=== PATIENT | female | born 1940 | race Asian ===

== ENCOUNTER 2023-06-27 16:05 | Emergency (ER) | payer MEDICAID, MEDICARE ==
[~2023-06-27] VITALS: Ht 144.8 cm; Wt 36.0 kg
[2023-06-27 16:08] VITALS: O2SAT 98
[2023-06-27] MEDS ORDERED: SODIUM CHLORIDE 0.9% 500 ML IV ONE (16:30)
[2023-06-27 16:34] LABS: BASOPHILS % 0.6 % (0.0-2.0); EOSINOPHILS % 1.7 % (0.0-5.0); HEMATOCRIT. 39.4 % (36.0-48.0); HEMOGLOBIN. 13.4 g/dL (12.0-16.0); LYMPHOCYTES % 32.3 % (20.0-50.0); MEAN CORPUSCULAR HEMOGLOBIN 30.1 pg (28.0-32.0); MEAN CORPUSCULAR VOLUME 88.6 fL (81.0-99.0); MEAN PLATELET VOLUME 7.6 fl (7.4-10.4); MONOCYTES % 7.1 % (2.0-8.0); NEUTROPHILS % 58.3 % (40.0-76.0); PLATELET 219 x1000/uL (130-400); RED BLOOD CELL COUNT 4.45 mill/uL (4.2-5.4); WHITE BLOOD COUNT 6.3 x1000/uL (4.5-11.0)
[2023-06-27 16:46] LABS: D-DIMER 0.41 mg/L FEU (<0.50); INR 0.9; PROTHROMBIN TIME 9.9 sec (9.6-11.0)
[2023-06-27 16:53] LABS: CLARITY URINE CLEAR (CLEAR); COLOR URINE YELLOW (YELLOW); GLUCOSE URINE 1+ (NEGATIVE); KETONES URINE TRACE (NEGATIVE); LEUKOCYTE ESTERASE URINE NEGATIVE (NEGATIVE); NITRITE URINE NEGATIVE (NEGATIVE); OCCULT BLOOD URINE NEGATIVE (NEGATIVE); PROTEIN URINE NEGATIVE (NEGATIVE); SPECIFIC GRAVITY URINE 1.017 (1.005-1.030)
[2023-06-27 16:55] LABS: BACTERIA URINE NONE SEEN; RBC URINE 0-2 /hpf (0-2); SQUAMOUS EPITHELIAL CELL URINE NONE SEEN /lpf (RARE/1+); YEAST URINE NONE SEEN
[2023-06-27 17:24] LABS: CHLORIDE 107 mEq/L (98-107); INDEX HEMOLYSI 1 (1-3); INDEX ICTERIC 1 (1-4); INDEX LIPEMIC 1 (1-3); POTASSIUM 3.6 mEq/L (3.5-5.1); SODIUM 137 mEq/L (136-145)
[2023-06-27] MEDS ORDERED: ALBUTEROL (0.083%) 2.5MG/3ML NEB HHN ONE (17:30)
[2023-06-27] MEDS ORDERED: PREDNISONE 20MG TABLET PO ONE (17:30)
[2023-06-27 17:31] LABS: ALANINE AMINOTRANSFERASE 37 IU/L (13-61); ALBUMIN 4.2 g/dL (3.4-5.0); ASPARTATE AMINOTRANSFERASE 25 IU/L (15-37); BILIRUBIN TOTAL 0.9 mg/dL (0.1-1.0); CALCIUM 8.7 mg/dL (8.5-10.1); CARBON DIOXIDE 23 mEq/L (21-32); CREATININE 0.7 mg/dL (0.6-1.3); GLUCOSE 187 mg/dL (70-105); PROTEIN TOTAL 7.8 g/dL (6.0-8.3); TROPONIN I HIGH SENSITIVITY 42 ng/L (<54); UREA NITROGEN BLOOD 22 mg/dL (7-21)
[2023-06-27 17:40] LABS: WBC URINE 0-2 /hpf (0-2)
[2023-06-27] MEDS ORDERED: PREDNISONE 20MG TABLET PO NR (19:15)
[2023-06-27] MEDS ORDERED: ALBUTEROL (0.083%) 2.5MG/3ML NEB HHN NR (19:15)
[2023-06-27 20:00] VITALS: BP 139/89; PULSE 84; RESP 16; TEMP 98.4
== END 2023-06-27 21:14 | disposition home or self-care (01) ==
LOC: ER 16:05
DX: R53.1 Weakness (principal); I10 Essential (primary) hypertension
CPT/HCPCS: 99285; 96360; 70450; 71045; 80053; 81003; 83880; 85025; 85379; 85610; 84484; 36415; 93005; J7512; J7040; C1893